=== PATIENT | male | born 1980 | race Caucasian/White ===

== ENCOUNTER 2020-06-27 15:40 | Emergency (ER) | payer OTHER, SELFPAY ==
[2020-06-27 15:45] VITALS: BP 124/83; PULSE 105; RESP 18; TEMP 37.3; O2SAT 100
--- NOTE | 2020-06-27 15:50 | ED.DENTAL ---
HPI - Dental/Oral General Chief complaint: Dental/Oral Stated complaint: tooth ache Time Seen by Provider: 06/27/20 15:50 Source: patient and RN notes reviewed History of Present Illness HPI Narrative: Patient is a 40-year-old male who presents the urgent care with complaints of left lower dental pain. Patient states the pain has been present for the last 3 to 4 days and he has been taking ibuprofen for the pain. Denies of any fever, nausea, vomiting, bad taste in the mouth. Patient also reports of a right elbow injury after fall 1 month ago. Patient states he is not having any pain but does notice the fluid in the elbow . Patient states it is painful to lean on but otherwise does not cause him any issues. No other acute complaints. No acute distress noted. Patient aware of the plan of care. Some parts of this dictation were generated by voice recognition software and may contain typographical and/or grammatical inaccuracies. Related Data Allergies Allergy/AdvReac Type Severity Reaction Status Date / Time No Known Allergies Allergy Unknown Verified 06/27/20 15:57 Review of Systems Review of Systems: Narrative: CONSTITUTIONAL: Denies fever, chills, or sweats. EYES: Denies visual changes, redness, or discharge. ENT: Reports of left lower dental pain CARDIOVASCULAR: Denies chest pain, palpitations, or edema. RESPIRATORY: Denies cough or dyspnea. GASTROINTESTINAL: Denies abdominal pain, nausea, vomiting, or diarrhea. GENITOURINARY: Denies dysuria or hematuria. SKIN: Denies rash or itching. MUSCULOSKELETAL: Reports of swelling to the right elbow NEUROLOGIC: Denies headache, numbness, or weakness. All other systems reviewed are negative, except as documented in HPI. PMFSH Comments At the time of my signature, I reviewed and agree with the nursing past medical, surgical, social, and family history. There is no relevant family history pertinent to the patient complaint. Exam Narrative: Exam Narrative: GENERAL: This is a well-nourished, well-developed patient, in no apparent distress. HEAD: normocephalic, atraumatic. EYES: PERRL. Sclera clear/white. Vision is grossly intact. EARS: External ears normal, auditory canals clear and without drainage, TMs normal without perforation. Hearing grossly intact. NOSE: External nose normal with no obvious nasal discharge, nares without redness, no rhinorrhea. THROAT: Mucous membranes moist, posterior pharynx clear. Very poor dentition with avulsed teeth throughout. Edematous and erythemic gums starting at the avulsed second premolar, tooth #21 and posterior. Very poor oral hygiene NECK: Neck supple SKIN: warm, intact with no suspicious lesions or rash, good texture and turgor. NEURO: awake, alert, and oriented to person, place and time. There were no obvious focal neurologic abnormalities. EXTREMITIES: Notable fluctuant mild to moderate right bursitis with mild tenderness on palpation. No surrounding erythema. Range of motion to right upper extremity within normal limits with positive strong right radial pulse and capillary refill less than 2 seconds. Course Vital Signs Vital signs: Vital Signs Temperature 99.1 F 06/27/20 15:45 Pulse Rate 105 H 06/27/20 15:45 Respiratory Rate 18 06/27/20 15:45 Blood Pressure 124/83 06/27/20 15:45 Pulse Oximetry 100 06/27/20 15:45 Temperature 99.1 F 06/27/20 15:45 Pulse Rate 105 H 06/27/20 15:45 Respiratory Rate 18 06/27/20 15:45 Blood Pressure 124/83 06/27/20 15:45 Pulse Oximetry 100 06/27/20 15:45 Reviewed MDM - Dental/Oral MDM Narrative Medical decision making narrative: Advised the patient to use ibuprofen as needed for pain. Complete oral antibiotic regimen as prescribed for dental abscess. Use Prevention mouthwash [id number] twice a day. Practice good oral hygiene. Stop smoking. Make sure to eat and drink with the medication. Further bursitis of the left elbow?may use a lightly wrapped Brendon wrap and i
== END 2020-06-27 16:15 | disposition home or self-care (01) ==
PROVIDERS: Emergency Provider Nurse Practitioner Family
DX: K04.7 Periapical abscess without sinus (principal); M70.21 Olecranon bursitis, right elbow
CPT/HCPCS: 99213; G0463